=== PATIENT | male | born 1960 | race African-American/Black ===

== ENCOUNTER 2020-05-21 12:56 | Emergency (ER) | payer MEDICARE, OTHER ==
[~2020-05-21] VITALS: Ht 180.3 cm; Wt 95.3 kg
[2020-05-21 13:02] VITALS: BP 176/96
--- NOTE | 2020-05-21 13:17 | NUR ---
ED Nurse Note: Patient brought in by girlfriend due to right flank pain x 1 year, worsened over 2 days. Reports no fever, chills, N/V. Reports no numbness or tingling in BLE or loss of bladder or bowel control. Denies any urinary problem. Patient awake, alert, oriented x4. Regular, unlabored breathing noted. Bed in lowest position.
[2020-05-21] MEDS ORDERED: Ketorolac 30mg Inj IM ONE (13:30)
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
[2020-05-21 14:28] LABS: APPEARANCE,URINE SLIGHTLY CLOUDY; BILIRUBIN, URINE NEGATIVE (NEGATIVE); GLUCOSE, URINE (UA) 3+ (NEGATIVE); KETONES,URINE 1+ (NEGATIVE); LEUKOCYTE ESTERASE ,URINE 1+ (NEGATIVE); NITRITE,URINE NEGATIVE (NEGATIVE); PH,URINE 6.5 (4.5-8.0); PROTEIN,URINE 2+ (NEGATIVE); UROBILINOGEN,URINE NORMAL MG/DL (0.0-1.0)
--- NOTE | 2020-05-21 14:36 | Diagnostic Imaging Report ---
Indication: Right-sided low back pain for 3 days Technique: Spiral acquisitions obtained through the abdomen and pelvis. No oral contrast utilized, per emergency room physician request No IV contrast utilized, per referring physician request.. Multiplanar reconstructions were generated. Total dose length product 329 mGycm. CTDIvol(s) 6 mGy. Dose reduction achieved using automated exposure control Comparison: None Findings: No renal or ureteral calculi, hydronephrosis, or hydroureter. Bladder is unremarkable. Lack of IV contrast limits assessment of the renal parenchyma. No gross renal parenchymal mass or cyst demonstrated. Lack of IV contrast limits assessment of the other solid organs. The liver, gallbladder, bile ducts, pancreas, spleen, adrenals are unremarkable. No retroperitoneal or mesenteric mass or adenopathy. No pelvic mass or adenopathy. There are numerous colonic diverticula. No evidence of acute diverticulitis. The appendix is normal. There is evidence of an enteroenteric anastomosis in the right side of the abdomen, which appears to involve the distal ileum. There is a small umbilical hernia, into which protrudes the edge of a loop of small bowel. No associated strangulation or obstruction. No small bowel distention. Distal esophagus, stomach, duodenum are unremarkable. Included lung bases are clear. The bones demonstrate degenerative spondylosis changes. Impression: No acute process. No evidence of urinary stone disease or obstructive uropathy On the assessment of the GI tract, due to lack of enteric contrast demonstration. Colonic diverticulosis Evidence of prior small bowel surgery Small umbilical hernia, containing mostly fat and also the edge of a loop of small bowel. No associated stranding lesion or obstruction Degenerative spondylosis changes The CT scanner at [facility] is accredited by the [employer] and the scans are performed using protocols designed to limit radiation exposure to as low as reasonably achievable to attain images of sufficient resolution adequate for diagnostic evaluation.
[2020-05-21 14:40] LABS: COLOR,URINE YELLOW
[2020-05-21] MEDS ORDERED: IBUPROFEN600 M1 ORAL (15:13)
[2020-05-21] MEDS ORDERED: LIDODERM700 M1 TOPIC (15:13)
[2020-05-21] MEDS ORDERED: ROBAXIN-750750 MG PO (15:13)
[2020-05-21] MEDS ORDERED: Methocarbamol 500mg tab ORAL ONE (15:15)
--- NOTE | 2020-05-21 15:40 | NUR ---
ED Nurse Note: Patient decreased pain. Ambulating with steady gait. Reports no CP, dizziness, headache or N/V.
[2020-05-21 16:08] VITALS: BP 165/81
--- NOTE | 2020-05-21 16:10 | NUR ---
ED Nurse Note: Patient is cleared to be discharged per ERMD. D/C instruction and prescriptions given to patient. All questions were answered. Patient verbalized understanding of it. ID band removed. Patient agreed to f/u with PCP. Patient ambulated out with steady gait with all her belongings.
== END 2020-05-21 16:06 | disposition home or self-care (01) ==
LOC: EMR 13:30
DX: M54.41 Lumbago with sciatica, right side (principal); E11.9 Type 2 diabetes mellitus without complications
CPT/HCPCS: 74176; 81003; 96372; 99284; J1885